=== PATIENT | female | born 1930 | race Caucasian/White ===

== ENCOUNTER → 2018-03-24 | Outpatient (CLI) | payer MEDICARE ==
--- NOTE | 2018-03-24 13:32 | XR ---
EXAMINATION TYPE: XR ribs LT w pa chest xray DATE OF EXAM: 03/24/2018 CLINICAL HISTORY: Chest and anterior upper left rib pain after fall injury 4 days ago. TECHNIQUE: Single frontal view of the chest is obtained. A frontal and oblique images of the left-luis ed ribs are acquired. COMPARISON: Prior chest x-ray with right-sided rib x-rays August 15, 2014 FINDINGS: There is chronic Elaine change without suspicious new focal air space opacity, pleural ef fusion, or pneumothorax seen. The cardiac silhouette size remains enlarged with atherosclerotic aort a. The osseous structures are demineralized. Surgical change left shoulder is partially imaged. There are age-indeterminate minimally displaced fractures involving posterior lateral fifth and sixth ribs and overlying soft tissue is unremarkable. Cholecystectomy clips are noted. IMPRESSION: 1. Chronic changes and cardiomegaly without acute pulmonary process. 2. Age-indeterminate minimally displaced fractures involving posterior lateral left fifth and sixth r ibs new from 2014, correlate clinically with point tenderness at this level.
== END | disposition home or self-care (01) ==
LOC: RADXRYALE 13:05
PROVIDERS: ATTEND Family Medicine
DX: S23.41XA Sprain of ribs, initial encounter (principal)

== ENCOUNTER → 2018-04-23 | Outpatient (CLI) | payer MEDICARE ==
--- NOTE | 2018-04-23 14:33 | XR ---
EXAMINATION TYPE: XR ribs LT DATE OF EXAM: 04/23/2018 CLINICAL HISTORY: Pain, Fall Four views of the ribs demonstrates a fractures of left ribs 3, 4, 5 and 6. No additional fractures a re seen. Visualized lungs are clear. No evidence for pneumothorax. IMPRESSION: Left-sided rib fractures as noted.
== END | disposition home or self-care (01) ==
LOC: RADXRYALE 12:22
PROVIDERS: ATTEND Family Medicine
DX: S22.42XA Multiple fractures of ribs, left side, initial encounter for closed fracture (principal)